=== PATIENT | male | born 1960 | race Caucasian/White ===

== ENCOUNTER 2019-10-11 18:37 | Emergency (ER) | payer BC, OTHER ==
[~2019-10-11] VITALS: Ht 188 cm; Wt 115.7 kg
[2019-10-11] MEDS ORDERED: LOPRESSOR50 MG PO (18:58)
[2019-10-11] MEDS ORDERED: LISINOPRIL2.5 MG PO (18:58)
[2019-10-11] MEDS ORDERED: NOVOLOG100 UNIT/M SUBQ (18:58)
[2019-10-11] MEDS ORDERED: LANTUS SUBQ (18:59)
[2019-10-11] MEDS ORDERED: GABAPENTIN 100100 MG PO (18:59)
[2019-10-11] MEDS ORDERED: FLEXERIL PO (19:00)
[2019-10-11 19:52] VITALS: BP 122/61
== END 2019-10-11 19:53 | disposition home or self-care (01) ==
LOC: ER 18:37
DX: S30.1XXA Contusion of abdominal wall, initial encounter (principal); M54.5 Low back pain; E11.40 Type 2 diabetes mellitus with diabetic neuropathy, unspecified; Z95.5 Presence of coronary angioplasty implant and graft; Z79.4 Long term (current) use of insulin; Z91.041 Radiographic dye allergy status; Z88.6 Allergy status to analgesic agent; V89.2XXA Person injured in unspecified motor-vehicle accident, traffic, initial encounter; Y93.89 Activity, other specified; Y92.415 Exit ramp or entrance ramp of street or highway as the place of occurrence of the external cause; Y99.8 Other external cause status